=== PATIENT | male | born 1945 | race Caucasian/White ===

== ENCOUNTER 2022-03-09 07:43 | Emergency (ER) | payer MEDICARE, OTHER, SELFPAY ==
[2022-03-09 07:52] VITALS: BP 184/97; PULSE 80; RESP 16; TEMP 36.5; O2SAT 99
--- NOTE | 2022-03-09 08:35 | ED.GENADULT ---
HPI - General Adult General Chief complaint: Skin/Abscess/Foreign Body Stated complaint: fb ear Time Seen by Provider: 03/09/22 07:54 History of Present Illness HPI narrative: 77-year-old male presenting to the emergency department for a foreign body in his right ear. Patient states that the silicone and his hearing aid was stuck in his ear. Patient did have follow-up with [facility] and they stated they did not have the right tool to remove it. Patient denies any other pain or injury. Related Data Allergies Allergy/AdvReac Type Severity Reaction Status Date / Time Penicillins Allergy Mild Verified 05/22/10 14:33 XRAY DYE Allergy Mild Uncoded 11/12/07 11:29 Review of Systems Review of Systems: CONSTITUTIONAL: Denies fever, chills, or sweats. EYES: Denies visual changes, redness, or discharge. ENT: Foreign body in the right ear CARDIOVASCULAR: Denies chest pain, palpitations, or edema. RESPIRATORY: Denies cough or dyspnea. GASTROINTESTINAL: Denies abdominal pain, nausea, vomiting, or diarrhea. GENITOURINARY: Denies dysuria or hematuria. SKIN: Denies rash or itching. MUSCULOSKELETAL: Denies back pain, joint pain, or myalgia. NEUROLOGIC: Denies headache, numbness, or weakness. PSYCHIATRIC: Denies anxiety or depression. Exam Narrative: APPEARANCE: Well appearing, no pain, no distress, well-nourished. HEAD: normocephalic, atraumatic. EYES: PERRLA/EOMI, conjunctivae clear. NOSE: Normal no drainage EARS: Silicone foreign body in the right ear, after removal TM is normal-appearing. THROAT: Pharynx clear, no exudate. NECK: Supple. No adenopathy, no masses. RESPIRATORY: Airway patent, respirations nonlabored. Clear to auscultation bilaterally, no rales, rhonchi, wheezing. CARDIOVASCULAR: Regular rate and rhythm without murmurs rubs or gallops. NEURO: Alert. Cranial nerves II through XII intact. Good gait. Good coordination SKIN: Warm, dry. Normal Color Course Vital Signs Vital signs: Vital Signs Temperature 97.7 F 03/09/22 07:52 Pulse Rate 80 03/09/22 07:52 Respiratory Rate 16 03/09/22 07:52 Blood Pressure 184/97 H 03/09/22 07:52 Pulse Oximetry 99 03/09/22 07:52 Oxygen Delivery Room Air 03/09/22 07:52 Temperature 97.7 F 03/09/22 07:52 Pulse Rate 80 03/09/22 07:52 Respiratory Rate 16 03/09/22 07:52 Blood Pressure 184/97 H 03/09/22 07:52 Pulse Oximetry 99 03/09/22 07:52 Oxygen Delivery Room Air 03/09/22 07:52 Procedures Foreign Body Removal Foreign Body #1: Foreign Body Removal Time: 08:40 Time Out Performed: yes Site: right and ear Description of foreign body: other Technique: removal with forceps Confirmed by:: direct visualization Complications: none Post-procedure exam: awake, alert Neurovascular: no change from pre-procedure Medical Decision Making Vital Signs Vital Signs: Vital Signs Temperature 97.7 F 03/09/22 07:52 Pulse Rate 80 03/09/22 07:52 Respiratory Rate 16 03/09/22 07:52 Blood Pressure 184/97 H 03/09/22 07:52 Pulse Oximetry 99 03/09/22 07:52 Oxygen Delivery Room Air 03/09/22 07:52 Temperature 97.7 F 03/09/22 07:52 Pulse Rate 80 03/09/22 07:52 Respiratory Rate 16 03/09/22 07:52 Blood Pressure 184/97 H 03/09/22 07:52 Pulse Oximetry 99 03/09/22 07:52 Oxygen Delivery Room Air 03/09/22 07:52 Discharge Plan Discharge Clinical Impression: Foreign body in ear Qualifiers: Encounter type: initial encounter Laterality: right Qualified Code(s): T16.1XXA - Foreign body in right ear, initial encounter Patient Disposition: Home, Self-Care Condition: Stable Instructions: Antibiotic Form, Ear Foreign Body (ED) Additional Instructions: Have close follow-up with your primary care physician. Follow-up/Referrals: [facility] [place] [facility], [Primary Care Provider] -
== END 2022-03-09 08:58 | disposition home or self-care (01) ==
PROVIDERS: Emergency Provider Emergency Medicine
DX: T16.1XXA Foreign body in right ear, initial encounter (principal)
CPT/HCPCS: 69200; 99282